=== PATIENT | female | born 1965 | race Asian ===

== ENCOUNTER 2020-08-15 16:47 | Observation (INO) | payer SELFPAY ==
[~2020-08-15] VITALS: Ht 152.4 cm; Wt 56.4 kg
--- NOTE | 2020-08-15 17:40 | NUR ---
CHEST PAIN X 6 MONTHS WORSE IN THE LAST WEEK NO RADIATION TO NECK/SHOULDERS JAW REPORTS INCREASED STRESS LATELY NSR, VSS ON CARPENTER AND JOINER
--- NOTE | 2020-08-15 17:47 | NUR ---
PLACED ON NEONATOLOGIST-NSR, VSS PIV PLACED FROM WHICH BASIC LABS WERE SENT
[2020-08-15 17:53] LABS: BASOPHILS % (AUTO) 1 % (0-1); EOSINOPHILS % (AUTO) 2 % (1-7); LYMPHOCYTES % (AUTO) 44 % (22-44); MEAN CORPUSCULAR HEMOGLOBIN 31.7 pg (27.0-34.8); MEAN CORPUSCULAR HGB CONC 32.4 g/dL (32.4-35.8); MEAN PLATELET VOLUME 9.5 fL (7.4-10.4); MONOCYTES % (AUTO) 7 % (2-9); NEUTROPHILS % (AUTO) 47 % (42-75); PLATELET COUNT 230 x10^3/uL (130-400); RED BLOOD COUNT 4.08 x10^6/uL (3.82-5.3); RED CELL DISTRIBUTION WIDTH 13.2 % (9.6-15.2)
[2020-08-15 17:55] LABS: MD NO
[2020-08-15 18:06] LABS: ALBUMIN 4.2 g/dL (3.4-5.0); ANION GAP 4 mmol/L (5-15); CALCIUM 9.5 mg/dL (8.5-10.1); CHLORIDE 108 mmol/L (98-107); CREATININE 0.68 mg/dL (0.55-1.02)
[2020-08-15 18:09] LABS: TROPONIN I 0.066 ng/mL (0.000-0.045)
--- NOTE | 2020-08-15 18:42 | NUR ---
WITH REVIEW OF TESTING RESULTS-TROPONIN FOUND TO BE 0.06-DR. HOLLAND MADE AWARE. AWAITING ORDERS
[2020-08-15] MEDS ORDERED: SODIUM CHLORIDE FLUSH 10ML SYR IVF PRN (19:00)
[2020-08-15] MEDS ORDERED: ASPIRIN 81 MG TABLET CHEW PO ONE (19:00)
[2020-08-15] MEDS ORDERED: NITROGLYCERIN SINGLE TAB 0.4 MG SL PRN (19:00)
[2020-08-15] MEDS ORDERED: ASPIRIN 81 MG TABLET CHEW ONE (19:05)
[2020-08-15] MEDS ORDERED: NITROGLYCERIN SINGLE TAB 0.4 MG SL ONE (19:05)
--- NOTE | 2020-08-15 19:10 | NUR ---
MEDICATED PER EMAR (ASA AND NITRO) REPORTS CP AT 3/10 PRE MEDICATION
--- NOTE | 2020-08-15 19:28 | NUR ---
DR. GUZMAN (HOSPITALIST AT BEDSIDE)
--- NOTE | 2020-08-15 19:30 | NUR ---
PAIN IMPROVED TO ONLY 01/25-DR. GUZMAN AWARE
[2020-08-15] MEDS ORDERED: MORPHINE SULFATE 4 MG/ML, 1ML IVPush PRN (20:00)
[2020-08-15] MEDS ORDERED: ONDANSETRON 2MG/ML, 2ML IVPush PRN (20:00)
[2020-08-15] MEDS ORDERED: ENALAPRILAT 1.25 MG/ML, 2ML IVPush PRN (20:00)
[2020-08-15] MEDS ORDERED: NITROGLYCERIN 0.4 MG BOTTLE (25 TABS) SL PRN (20:00)
[2020-08-15] MEDS ORDERED: ACETAMINOPHEN 325 MG TABLET PO PRN (20:00)
[2020-08-15] MEDS ORDERED: DOCUSATE 100 MG CAPSULE PO PRN (20:00)
[2020-08-15] MEDS ORDERED: ZOLPIDEM 5MG TABLET PO PRN (20:00)
[2020-08-15] MEDS ORDERED: METHOCARBAMOL 500 MG TABLET PO PRN (20:00)
[2020-08-15] MEDS ORDERED: HYDROcodone/APAP 5/325 TABLET PO PRN (20:00)
[2020-08-15] MEDS ORDERED: GUAIFENESIN/DM 200-20MG, 10ML UDC PO PRN (20:00)
[2020-08-15] MEDS ORDERED: NITROGLYCERIN 0.4 MG/SPRAY SL PRN (20:00)
--- NOTE | 2020-08-15 20:25 | NUR ---
PAIN IMPROVED TO 1/10 EATING DINNER VSS, NSR UPDATED ON ESTIMATED POC
[2020-08-15] MEDS ORDERED: OMEG1CAP23 PO (20:54)
[2020-08-15] MEDS ORDERED: UBID50CA3 PO (20:54)
[2020-08-15] MEDS: FAMOTIDINE 20 MG TABLET PO SCH (21:00)
[2020-08-15] MEDS ORDERED: ENOXAPARIN 40 MG/0.4 ML SQ SCH (21:30)
--- NOTE | 2020-08-15 21:33 | NUR ---
CHICA PALOMO (ROSALINDA) PRIMARY CONTACT CELL
[2020-08-15] MEDS ORDERED: FAMOTIDINE 40 MG TABLET ONE (22:14)
[2020-08-15 22:25] VITALS: BP 126/73
[2020-08-16 01:31] LABS: TROPONIN I 0.057 ng/mL (0.000-0.045)
[2020-08-16 02:20] VITALS: BP 92/54
[2020-08-16 05:53] LABS: BASOPHILS % (AUTO) 1 % (0-1); EOSINOPHILS % (AUTO) 3 % (1-7); LYMPHOCYTES % (AUTO) 47 % (22-44); MEAN CORPUSCULAR HEMOGLOBIN 32.2 pg (27.0-34.8); MEAN CORPUSCULAR HGB CONC 33.2 g/dL (32.4-35.8); MONOCYTES % (AUTO) 7 % (2-9); NEUTROPHILS % (AUTO) 42 % (42-75); PLATELET COUNT 208 x10^3/uL (130-400); RED BLOOD COUNT 3.84 x10^6/uL (3.82-5.3); RED CELL DISTRIBUTION WIDTH 13.2 % (9.6-15.2)
[2020-08-16 05:57] LABS: ANION GAP 7 mmol/L (5-15); CALCIUM 9.1 mg/dL (8.5-10.1); CHLORIDE 112 mmol/L (98-107)
[2020-08-16 06:01] LABS: TROPONIN I 0.058 ng/mL (0.000-0.045)
[2020-08-16 06:11] LABS: MD NO
[2020-08-16] MEDS ORDERED: FAMOTIDINE 40 MG TABLET ONE (07:52)
[2020-08-16] MEDS: FAMOTIDINE 20 MG TABLET PO SCH (07:58)
[2020-08-16] MEDS ORDERED: REGADENOSON 0.4 MG/5 ML SYRINGE ONE (08:28)
[2020-08-16 08:50] VITALS: BP 99/66
[2020-08-16] MEDS ORDERED: ASPIRIN 81 MG TABLET EC PO SCH (09:00)
[2020-08-16 13:15] VITALS: BP 101/64
[2020-08-16] MEDS ORDERED: FAMO20TA7 PO (14:22)
== END 2020-08-16 16:14 | disposition home or self-care (01) ==
LOC: ED 18:50 → EDIP 18:57 → INTOOBSV 18:57 → ED 19:13 → 5SO 21:05 → DCLOUNGE 08-16 15:53
PROVIDERS: ADMIT Internal Medicine; ATTEND Hospitalist
DX: R07.89 Other chest pain (principal); K21.9 Gastro-esophageal reflux disease without esophagitis; I20.0 Unstable angina; R94.31 Abnormal electrocardiogram [ECG] [EKG]; R79.89 Other specified abnormal findings of blood chemistry; E87.8 Other disorders of electrolyte and fluid balance, not elsewhere classified; Z79.899 Other long term (current) drug therapy
CPT/HCPCS: 36415; 71046; 78452; 80048; 82040; 83735; 84100; 84443; 84484; 85025; 93005; 93017; 96372; 96374; 99285; A9502; C9898; G0378; J1650; J2270; J2785

== ENCOUNTER → 2020-09-23 | Outpatient (CLI) | payer SELFPAY ==
[~2020-09-23] MED LIST: FAMO20TA7 PO; OMEG1CAP23 PO; UBID50CA3 PO
== END | disposition home or self-care (01) ==
LOC: CFH 08:26
PROVIDERS: ATTEND Nurse Practitioner Family
DX: N64.4 Mastodynia (principal)
CPT/HCPCS: 76642; 77066; G0279